=== PATIENT | male | born 1955 | race Caucasian/White ===

== ENCOUNTER 2020-09-20 11:41 | Emergency (ER) | payer OTHER, SELFPAY ==
[2020-09-20 11:48] VITALS: BP 126/94; PULSE 69; RESP 16; TEMP 36.4; O2SAT 99
--- NOTE | 2020-09-20 11:48 | ED.SKABFB ---
HPI - Skin/Abscess/Foreign Bdy General Chief complaint: Skin/Abscess/Foreign Body Stated complaint: knot on lower back Time Seen by Provider: 09/20/20 11:48 Source: patient and RN notes reviewed Mode of arrival: ambulatory Limitations: no limitations History of Present Illness HPI narrative: 65-year-old male presents to the [facility] with 2 complaints. First complaint was poison xochilt that has turned red, warm to touch in the left upper arm into the lateral aspect of his chest. States over the last 4 days it has just been getting worse. Patient denies any new creams or ointments lotions or detergents. Has been treating poison xochilt to his upper arms for the last couple of days. Complaint he has a movable knot to the left lower back. Reports has been there for approximately 10 years. Related Data Home Medications Medication Instructions Recorded Confirmed timolol maleate 1 drp OPHTHALMIC (EYE) DAILY 05/03/19 11/18/19 acetaminophen 650 mg 1,300 mg PO ONCE tablet 11/18/19 11/18/19 tablet,extended release latanoprost 0.005 % eye drops 1 drop EACH EYE DAILY 11/18/19 11/18/19 Allergies Allergy/AdvReac Type Severity Reaction Status Date / Time Penicillins Allergy Unknown Skin Verified 09/20/20 12:00 irritation Review of Systems Review of Systems: All systems reviewed & are unremarkable except as noted in HPI and below Constitutional: Constitutional: Reports no additional constitutional complaints Eyes: Eyes: Reports no additional eye complaints ENT: Reports system reviewed and no additional complaints, except as documented Cardiovascular: Cardiovascular: Reports no additional cardiovascular complaints and Denies chest pain Respiratory: Respiratory: Reports no additional respiratory complaints, Denies cough, Denies dyspnea and Denies wheezing Gastrointestinal: Gastrointestinal: Reports no additional gastrointestinal complaints, Denies abdominal pain, Denies diarrhea, Denies nausea and Denies vomiting Musculoskeletal: Musculoskeletal: Reports no additional musculoskeletal complaints, Denies back pain, Denies myalgias, Denies joint swelling and Denies muscle cramps Integumentary/Breasts: Skin/Breast: Reports erythema (Left upper arm medial aspect into the armpit and down the lateral chest) and Reports rash (Bilateral upper arms) Neurologic: Reports system reviewed and no additional complaints, except as documented, Denies dizziness, Denies headache(s), Denies focal weakness, Denies numbness and Denies weakness Psychiatric: Psychiatric: Reports no additional psychiatric complaints Endocrine: Endocrine: Reports no additional endocrine complaints Hematologic/Lymphatic: Hematologic/Lymphatic: Reports no additional hematologic/lymphatic complaints Allergic/Immunologic: Allergic/Immunologic: Reports no additional allergic/immunologic complaints, Denies lip swelling, Denies throat swelling, Denies tongue swelling and Denies wheezing [facility] Past Medical History Medical History (Updated 09/20/20 @ 12:03 by Christina Reyes) BMI 31.0-31.9,adult Colon cancer screening Hypercholesteremia Hyperlipidemia Osteoarthritis of left hip Prostate cancer screening Surgical History Surgical History No history of previous surgery Family History Family History Mother Family history of thyroid disease Family history of arthritis Family history of Alzheimer's disease Social History Social History Smoking status: Never smoker Second hand tobacco smoke exposure: No Alcohol intake: current Substance use: never Substance use type: does not use Gender identity (if verbalized by the patient): Male Comments At the time of my signature, I reviewed and agree with the nursing past medical, surgical, social, and family history. There is no relevant family history pertinent to
== END 2020-09-20 12:07 | disposition home or self-care (01) ==
PROVIDERS: Emergency Provider Nurse Practitioner; PCP Physician Assistant
DX: L23.7 Allergic contact dermatitis due to plants, except food (principal); L72.9 Follicular cyst of the skin and subcutaneous tissue, unspecified; E78.00 Pure hypercholesterolemia, unspecified; E78.5 Hyperlipidemia, unspecified; M16.12 Unilateral primary osteoarthritis, left hip
CPT/HCPCS: 99213; G0463

== ENCOUNTER 2020-12-05 18:26 | Emergency (ER) | payer OTHER, SELFPAY ==
[2020-12-05] VITALS (8 sets, daily range): BP systolic 144–169; BP diastolic 80–95; PULSE 57–76; RESP 12–20; TEMP 36.6; O2SAT 95–100
--- NOTE | ~2020-12-05 | CT_ITS ---
EXAMINATION: CTA chest PE protocol DATE: 12/05/2020 21:34 INDICATION: Chest pain, upper back pain.] TECHNIQUE: Computed tomography angiography (CTA) of the chest was performed with 100 mL Omnipaque-350 intravenous contrast timed to evaluate the pulmonary arteries. Coronal maximum intensity projection 3D-reconstructions were created by the technologist. Automated exposure control and iterative reconst ruction technique were employed. Exam dose: 590.15 mGy-cm total exam DLP. COMPARISON: 12/05/2020 and 05/03/2019 2 view chest radiograph FINDINGS: There is a very prominent calcified node at the lower left hilum, accounting for the nodula r density noted on chest radiographs. Additional smaller calcified left hilar nodes are noted. Calcif ied superior segment left lower lobe pulmonary granuloma. There are multiple calcified splenic granulomas. Findings are consistent with old granulomatous disea se. Normal heart size. No pericardial or pleural effusion. No thoracic aortic aneurysm or dissection. No hilar or mediastinal mass lesion or lymphadenopathy. No pulmonary infiltrate or consolidation or pulmonary mass lesion. Diffuse idiopathic skeletal hyperostosis of the thoracic spine. IMPRESSION: Old granulomatous disease, including large calcified lower left hilar node accounting fo r nodular density overlying the lower left hilum on recent chest radiograph Reviewed, dictated and finalized at [facility] Reviewed, dictated and finalized at [facility]. IMPRESSION: Old granulomatous disease, including large calcified lower left hi lar node accounting for nodular density overlying the lower left hilum on recen t chest radiograph
--- NOTE | ~2020-12-05 | XR_ITS ---
XR chest 2V DATE: 12/05/2020 18:55 INDICATION: Left chest pain radiating to back TECHNIQUE: PA and lateral views COMPARISON: 05/03/2019 PA and lateral chest FINDINGS: Normal heart size. Stable approximately 2.7 cm nodular density projecting over the left hilum, unchanged since 05/03/2019 . No pulmonary infiltrate or consolidation, pleural effusion or pulmonary vascular congestion or pneumo thorax. IMPRESSION: Stable 2.7 cm nodular density at the lower left hilum, unchanged since 05/03/2019, possibl y a calcified pulmonary granuloma. CT thorax would be helpful for more definitive assessment. Reviewed, dictated and finalized at [facility] IMPRESSION: Stable 2.7 cm nodular density at the lower left hilum, unchanged si nce 05/03/2019, possibly a calcified pulmonary granuloma. CT thorax would be hel pful for more definitive assessment.
--- NOTE | 2020-12-05 18:31 | ECG_ITS ---
Measurements Intervals [place] Rate: 63 P: 37 VT: 174 QRS: 60 QRSD: 119 T: 24 QT: 398 QTc: 408 Interpretive Statements SINUS RHYTHM INTRAVENTRICULAR CONDUCTION DELAY BASELINE ARTIFACT- I, II, III, AVR, AVL, AVF BORDERLINE ECG Electronically Signed On 12-06-2020 8:16:58 CDT by Gera Gallego D.O.
[2020-12-05 18:46] LABS: Basophils Percent Auto 0.5 % (0.2-1.2); Eosinophils Absolute Auto 0.2 K/mm3 (0-0.3); Eosinophils Percent Auto 2.7 % (0-4.4); Hematocrit 43.2 % (42.0-52.0); Immature Granulocyte Absolute 0.02 K/mm3 (0.00-0.031); Immature Granulocyte Percent A 0.2 % (0-0.5); Lymphocytes Absolute Auto 2.58 K/mm3 (0.9-3.2); Lymphocytes Percent Auto 30.6 % (18.3-44.2); Mean Corpuscular HGB Conc 34.7 g/dl (32-36); Mean Corpuscular Hemoglobin 32.9 pg (26-34); Mean Corpuscular Volume 94.7 fl (80-100); Mean Platelet Volume 10.3 fl (7.4-10.4); Monocytes Absolute Auto 0.9 K/mm3 (0.1-0.6); Monocytes Percent Auto 11.1 % (2.6-8.5); Neutrophils Absolute Auto 4.6 K/mm3 (1.3-6.7); Neutrophils Percent Auto 54.9 % (45.5-73.1); Platelet Count Result 185 k/mm3 (150-375); Red Blood Count 4.56 M/mm3 (4.6-6.20); Red Cell Distribution Width 12.4 % (11.5-14.5); White Blood Count 8.4 K/mm3 (4.5-10.0)
--- NOTE | 2020-12-05 18:48 | PC.NURSE ---
To xray at this time.
[2020-12-05 18:57] LABS: INR 0.9; Prothrombin Time 11.9 Seconds (11.1-14.7)
[2020-12-05 18:58] LABS: Partial Thromboplastin Time 25.2 SECONDS (22.3-36.8)
[2020-12-05 19:00] LABS: Anion Gap 8 mmol/L (8-16); Blood Urea Nitrogen 17 mg/dL (9-20); Calcium 9.2 mg/dL (8.4-10.2); Carbon Dioxide 24 mmol/L (22-30); Chloride 107 mmol/L (98-107); Estimated CRCL calculation 91 ml/min; Estimated Glomerular Filt Rate > 60; Glucose 113 mg/dL (65-110); Potassium 3.5 mmol/L (3.4-5.0); Sodium 139 mmol/L (137-145)
[2020-12-05 19:12] LABS: Troponin I < 0.012 ng/mL (0.000-0.034)
--- NOTE | 2020-12-05 19:23 | ED.CHESTPAIN ---
HPI - Chest Pain General Chief Complaint: Chest Pain Stated Complaint: chest pain Time Seen by Provider: 12/05/20 19:04 Source: RN notes reviewed History of Present Illness HPI narrative: Patient presents emergency department from home for chest pain. Patient states that for the past month he has been having intermittent episodes of left-sided chest pain he states the pain feels like a grabbing sensation will last proximally 1 to 2 seconds and resolve states he is occur approximately once every other day states he had approximately 3 episodes today each lasting 1 to 2 seconds and then resolving he denies any fevers or chills shortness of breath abdominal pain nausea vomiting or any other symptoms states nothing seems to make the pain better or worse denies any previous cardiac history Related Data Home Medications Medication Instructions Recorded Confirmed timolol maleate 1 drp OPHTHALMIC (EYE) DAILY 05/03/19 11/18/19 latanoprost 0.005 % eye drops 1 drop EACH EYE DAILY 11/18/19 11/18/19 Allergies Allergy/AdvReac Type Severity Reaction Status Date / Time Penicillins Allergy Unknown Skin Verified 12/05/20 18:34 irritation Review of Systems Review of Systems: Gen.: Denies fevers or chills ENT: Denies congestion Respiratory: Denies shortness of breath or cough CV: See HPI GI: Denies abdominal pain nausea, emesis or diarrhea Musculoskeletal: Denies back pain or muscle pain Neuro: Denies numbness, tingling, weakness or focal weakness Skin: Denies rash Except as documented, all other systems reviewed and negative PMFSH Past Medical History Medical History BMI 31.0-31.9,adult Cataract, left eye Colon cancer screening Hypercholesteremia Hyperlipidemia Lung nodule seen on imaging study Osteoarthritis of left hip Prostate cancer screening Surgical History Surgical History (Updated 11/09/20 @ 15:35 by Courtney Rich) History of left hip replacement Hx of cataract extraction Family History Family History Mother Family history of thyroid disease Family history of arthritis Family history of Alzheimer's disease Social History Social History Smoking status: Never smoker Second hand tobacco smoke exposure: No Alcohol intake: current Alcohol use details: Maybe 1 per day. Substance use: never Substance use type: does not use Gender identity (if verbalized by the patient): Male Exam Narrative: APPEARANCE: No acute distress, nontoxic, resting in bed EYES: EOMI HEENT: Normocephalic, atraumatic, OMM RESPIRATORY: No respiratory distress Clear to auscultation bilaterally with no rhonchi wheezing or rales. CARDIOVASCULAR: Regular rate and rhythm without murmurs rubs or gallops. ABDOMINAL: Soft, nontender, nondistended, no rebound or guarding MUSCULOSKELETAl: Moves all extremities. No clubbing, cyanosis or edema. NEURO: Awake and alert. Following commands, speech normal, no focal deficits SKIN:: Warm, dry. No rashes lesions or abrasions PSYCHIATRIC: Normal affect/mood, Course Course Emergency Course: Patient has had no chest pain in ED : Discussed Dr. Vargas presentation work-up at this time agrees with plan for discharge with follow-up as an outpatient Discussed with patient results of workup and diagnosis. Discussed need for follow-up with primary care, proper use of medication, and reasons to return to the emergency department. Patient understands and agrees to current treatment plan Vital Signs Vital signs: Vital Signs Temperature 97.8 F 12/05/20 18:31 Pulse Rate 67 12/05/20 18:31 Respiratory Rate 14 12/05/20 18:31 Blood Pressure 169/95 H 12/05/20 18:31 Pulse Oximetry 99 12/05/20 18:31 Temperature 97.8 F 12/05/20 18:31 Pulse Rate 67 12/05/20 21:57 Respiratory Rate 14 12/05/20 21:57 Blood P
[2020-12-05 20:48] LABS: Troponin I < 0.012 ng/mL (0.000-0.034)
[2020-12-05 21:00] LABS: D Dimer 0.51 ug/mL (<0.48)
== END 2020-12-05 22:45 | disposition home or self-care (01) ==
PROVIDERS: Emergency Medicine; Emergency Provider Emergency Medicine; PCP Family Medicine
DX: R07.9 Chest pain, unspecified (principal); E78.00 Pure hypercholesterolemia, unspecified; E78.5 Hyperlipidemia, unspecified; M16.12 Unilateral primary osteoarthritis, left hip; Z96.642 Presence of left artificial hip joint; Z98.42 Cataract extraction status, left eye; R91.1 Solitary pulmonary nodule; I45.9 Conduction disorder, unspecified
CPT/HCPCS: 36415; 71046; 71275; 80048; 84484; 85025; 85380; 85610; 85730; 93005; 99284; Q9967

== ENCOUNTER 2021-01-25 14:03 | Outpatient (CLI) | payer OTHER, SELFPAY ==
--- NOTE | ~2021-01-25 | CT_ITS ---
EXAMINATION: CT diagnostic chest wo con DATE: 01/25/2021 15:03 INDICATION: Solitary pulmonary nodule TECHNIQUE: Computed tomography (CT) of the chest was performed without intravenous contrast. The dose -length product (DLP) was 209.63 mGy-cm. Automated exposure control and iterative reconstruction tech nique were employed. COMPARISON: 12/05/2020 FINDINGS: The lungs are free of acute opacities. There is no pleural effusion or pneumothorax. No pat hologically enlarged thoracic lymph nodes are identified. The heart size is normal. Calcified pulmona ry nodules and calcified left hilar lymph nodes are consistent with old granulomatous disease. There is mild thoracic spondylosis. IMPRESSION: 1. No CT correlate for the patient's symptoms. Reviewed, dictated and finalized at [facility].
== END 2021-01-25 14:04 | disposition home or self-care (01) ==
PROVIDERS: PCP Family Medicine; Visit Provider Family Medicine
DX: R91.1 Solitary pulmonary nodule (principal)
CPT/HCPCS: 71250

== ENCOUNTER 2024-06-15 13:35 | Emergency (ER) | payer MEDICARE, SELFPAY ==
[2024-06-15 13:50] VITALS: BP 101/86; PULSE 61; RESP 16; TEMP 36.6; O2SAT 99
--- NOTE | 2024-06-15 14:18 | ED.DENTAL ---
HPI - Dental/Oral General Chief complaint: Dental/Oral Stated complaint: Tooth Ache History of Present Illness HPI Narrative: 69-year-old male presents today with complaints of dental pain times about 1 week. Per patient it was bothering him but last night he was unable to get any sleep. Patient did try calling his symptoms on Monday they do have appointment on Monday. Patient denies any drainage, fevers, body aches, chills. Location: Tooth # (9) Related Data Home Medications ?Medication ?Instructions ?Recorded ?Confirmed ?Last Taken ?Type latanoprost 0.005 % eye drops 1 drop ophthalmic (eye) DAILY 11/18/19 06/15/24 Unknown History dorzolamide 2 % eye drops 1 drp EACH EYE BID 05/31/22 06/15/24 Unknown History Allergies Allergy/AdvReac Type Severity Reaction Status Date / Time Penicillins Allergy Unknown Skin Verified 06/15/24 13:48 irritation Review of Systems Review of Systems: All systems reviewed & are unremarkable except as noted in HPI and below Eyes: Eyes: Reports as per HPI ENT: Reports as per HPI Cardiovascular: Cardiovascular: Reports as per HPI Respiratory: Respiratory: Reports as per HPI Genitourinary: Genitourinary: Reports as per HPI Musculoskeletal: Musculoskeletal: Reports as per HPI Integumentary/Breasts: Skin/Breast: Reports as per HPI Neurologic: Reports as per HPI Psychiatric: Psychiatric: Reports as per HPI Endocrine: Endocrine: Reports as per HPI Hematologic/Lymphatic: Hematologic/Lymphatic: Reports as per HPI Allergic/Immunologic: Allergic/Immunologic: Reports as per HPI [facility] Past Medical History Medical History BMI 31.0-31.9,adult Cataract, left eye Colon cancer screening Hypercholesteremia Hyperlipidemia Lung nodule seen on imaging study Osteoarthritis of left hip Prostate cancer screening Surgical History Surgical History History of left hip replacement Hx of cataract extraction Family History Family History Mother Family history of thyroid disease Family history of arthritis Family history of Alzheimer's disease Social History Social History (Updated 05/31/22 @ 09:29 by Skye Boss CMA) Smoking status: Never smoker Second hand tobacco smoke exposure: No Alcohol intake: current Alcohol use details: Maybe 1 per day. Substance use: never Substance use type: does not use Lack of Transportation: No Lack of Food: Never True Current Housing: I Have Housing Concerned About Future Housing: No Difficulty Paying Gas/Electric Bills: No Difficulty Paying for Meds: No Currently Unemployed: No Education: Master's Degree or Higher Difficulty w/ Childcare or Family Care: No Living arrangements: with family Occupation/Education: retired Gender identity (if verbalized by the patient): Male Spiritual care concerns: No Agree to blood products: Yes Exam Const: General: cooperative, healthy appearing, comfortable, no acute distress and well developed Orientation/consciousness: patient oriented x3 HENMT: Head: normal to inspection Other: brown discoloration noted to tooth 9. Without abscess or dental caries noted at this time. No erythema. Eyes: General: appearance normal, both eyes and all related structures Resp: Effort & Inspection: normal respiratory effort and able to speak in complete sentences Auscultation: clear to auscultation bilaterally Cardio: Rate: regular rate Rhythm: regular rhythm Heart sounds: S1 normal heart sound present and S2 normal heart sound present Skin: General skin exam: normal color Neuro: General: patient oriented x3 Cognition (Neuro): normal cognition Speech: normal speech Psych: Mental Status: mental status grossly normal Course Course Level of Care: Express Care Visit Vital Signs Vital signs: Vital Signs Temperature 97.9 F 06/15/24 13:50 Pulse Rate 61 06/15/24 13:50 Respiratory Rate 16 06/15/24 13:50 Blood Pressure 101/86 06/15/24 13:50 Pulse Oximetry 99 06/15/24 13:50 Temperature 97.9 F 06/15/24 13:50 Pulse Rate 61 06/15/24 13:50 Respiratory Rate 16 06/15/24 13:50 Blood Pressure 101/86 06/15/24 13:50 Pulse Oximetry 99 06/15/24 13:50 MDM - Dental/Oral MDM Narrative Medical decision making narrative: 69-year-old male HPI started. Differentials include dental caries tooth ache dental abscess. No obvious abscess noted. Will treat for possible infection patient already has appointment with dentist on Monday. Patient allergic to penicillin but did tolerate Keflex in the past. Will treat with cefdinir and metronidazole. Medical Records Attestation: I reviewed the patient's medical records. Discharge Plan Discharge Clinical Impression: Toothache Patient Disposition: Home, Self-Care Condition: Stable Instructions: Antibiotic Form, Toothache (ED) Additional Instructions: Your being treated with a dental infection today. Allergic to penicillin so we are doing cefdinir and metronidazole. You previously tolerated cephalexin and cefdinir is similar. Please complete the full prescribed course of antibiotics. Keep your appointment with your dentist on Monday. Return with any concerns. Patient Language: Dutch Prescriptions: New cefdinir 300 mg capsule 300 mg PO Q12H 7 Days Qty: 14 0RF metronidazole 500 mg tablet 500 mg PO Q8H 7 Days Qty: 21 0RF No Action latanoprost 0.005 % drops 1 drop EACH EYE DAILY dorzolamide 2 % drops 1 drp EACH EYE BID rosuvastatin 20 mg tablet 20 mg PO DAILY Qty: 90 2RF Follow-up/Referrals: Raisa Cohen MD [Primary Care Provider] - Stand Alone Forms: Work/School Release IP Time of Disposition: 14:29
== END 2024-06-15 14:35 | disposition home or self-care (01) ==
PROVIDERS: Emergency Provider Nurse Practitioner Family; PCP Family Medicine
DX: K08.89 Other specified disorders of teeth and supporting structures (principal); E78.00 Pure hypercholesterolemia, unspecified; E78.5 Hyperlipidemia, unspecified; M16.12 Unilateral primary osteoarthritis, left hip; Z96.642 Presence of left artificial hip joint; Z98.42 Cataract extraction status, left eye
CPT/HCPCS: 99213; G0463